=== PATIENT | male | born 1980 | race Caucasian/White ===

== ENCOUNTER 2023-07-21 15:54 | Emergency (ER) | payer BC, SELFPAY ==
--- NOTE | ~2023-07-21 | XR_ITS ---
EXAMINATION: [id number] INDICATION: Left rib pain TECHNIQUE: A frontal view of the chest and 3 views of the left ribs were obtained. COMPARISON: 09/17/2016 FINDINGS: The lungs are free of acute opacities. No pleural effusion or pneumothorax. Cardiomediastin al silhouette is normal. No displaced rib fracture is identified. IMPRESSION: 1. No acute cardiopulmonary abnormality or evidence of displaced rib fracture. Reviewed, dictated and finalized at location F. 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
--- NOTE | 2023-07-21 16:07 | ED.URI ---
HPI - URI/Sore Throat General Chief Complaint: Unspecified Stated Complaint: pain in left side Time Seen by Provider: 07/21/23 16:15 Source: patient Mode of arrival: ambulatory Limitations: no limitations History of Present Illness HPI Narrative: Beny is a 43-year-old male patient presenting to the clinic today with complaints pain in his left side. He is currently rating his pain a 10/10. He is having pain with movement. States that he was wrestling with his daughter 2 days ago and she had a min aside he fell off the bed. States that he did not have any pain after that. The next day he went bowling and did not have any pain with throwing the bowling ball however that night he went home and laid on the couch and started having pain in his left side. He reports that the pain is constant and takes his breath away with movement Related Data Home Medications Medication Instructions Recorded Confirmed buprenorphine 2 mg-naloxone 0.5 mg 1 film sublingual BID 07/21/23 07/21/23 sublingual film Allergies Allergy/AdvReac Type Severity Reaction Status Date / Time No Known Allergies Allergy Unknown Verified 07/21/23 16:22 Review of Systems Review of Systems: Pertinent positives per HPI. Patient denies any fever, chills, rash, headache, visual changes, dizziness, cough, chest pain, palpitations, nausea, vomiting, diarrhea, constipation, abdominal pain, or any urinary issues. PMFSH Comments At the time of my signature, I reviewed and agree with the nursing past medical, surgical, social, and family history. There is no relevant family history pertinent to the patient complaint. Exam Narrative: General: Well-developed, well nourished, in no apparent distress Head: Normocephalic, atraumatic Eyes: Pupils equally round and reactive to light bilaterally, EOM intact, sclera and conjunctive clear, no discharge, lids normal Ears: TMs intact and clear, ear canals clear, no drainage, grossly hearing normal. Nose: Nares patent, no discharge, no inflammation, no sinus tenderness. Mouth: Oral pharynx without lesions or masses, good dentition, MMM. Neck: Supple, trachea midline, no enlargement of anterior or posterior cervical nodes, no thyroid masses or goiter palpable. Chest wall: Even rise and fall of the chest wall with respirations, symmetric, bruising or swelling noted, tenderness to palpation over the posterior left ribs Cardio: Regular rate and rhythm, s1 and s2 normal, no murmur appreciated. Resp: Clear to auscultation bilaterally, no rhonchi, rales, wheezing or rubs Abdomen: Soft, pliable, bowel sounds present all 4 quadrants, mild tenderness to palpation over the left lateral side, no organomegaly, mild left CVA tenderness Course Course Emergency Course: Portions of this record may have been created with voice recognition software. Level of Care: Express Care Visit Vital Signs Vital signs: Vital Signs Temperature 36.6 C 07/21/23 16:08 Pulse Rate 81 07/21/23 16:08 Respiratory Rate 16 07/21/23 16:08 Blood Pressure 123/68 07/21/23 16:08 Pulse Oximetry 98 07/21/23 16:08 Oxygen Delivery Room Air 07/21/23 16:08 Temperature 36.6 C 07/21/23 16:08 Pulse Rate 81 07/21/23 16:08 Respiratory Rate 16 07/21/23 16:08 Blood Pressure 123/68 07/21/23 16:08 Pulse Oximetry 98 07/21/23 16:08 Oxygen Delivery Room Air 07/21/23 16:08 Vital signs reviewed MDM - URI/Sore Throat MDM Narrative Medical decision making narrative: At the time of visit patient is resting comfortably on the exam table. Patient appears to be nontoxic. UA is positive for trace of intact blood, left rib x-ray negative for any sign of fracture or malalignment, cannot exclude kidney stone however history sounds more muscle skeletal. Will place the patient on Flexeril and naproxen and discussed if he has worsening of symptoms to go to the emergency room for rule out of kidney stone. Supportive measures w
[2023-07-21 16:08] VITALS: BP 123/68; PULSE 81; RESP 16; TEMP 36.6; O2SAT 98
== END 2023-07-21 16:56 | disposition home or self-care (01) ==
PROVIDERS: Emergency Provider Nurse Practitioner Family; PCP Internal Medicine
DX: S29.8XXA Other specified injuries of thorax, initial encounter (principal); X58.XXXA Exposure to other specified factors, initial encounter; R31.29 Other microscopic hematuria
CPT/HCPCS: 71101; 81003; 99213; G0463

== ENCOUNTER 2023-12-10 18:15 | Emergency (ER) | payer SELFPAY ==
--- NOTE | ~2023-12-10 | XR_ITS ---
[[id number] ] INDICATION: Right rib pain after fall TECHNIQUE: Frontal projection of the upper right ribs, frontal projection of the lower right ribs, ob lique projection of all the right ribs, frontal inspiratory chest x-ray for interpretation. FINDINGS: There are no displaced rib fractures identified. There are no soft tissue abnormality see n. The lungs are clear. IMPRESSION: 1:No acute displaced rib fractures. Reviewed, dictated and finalized at location B.
--- NOTE | 2023-12-10 18:23 | ED.GENADULT ---
HPI - General Adult General Chief complaint: Fall Stated complaint: Fall Injury Time Seen by Provider: 12/10/23 18:23 Source: patient, RN notes reviewed and old records reviewed Mode of arrival: ambulatory Limitations: no limitations History of Present Illness HPI narrative: 43 year male presents to the [facility] with complaints of right rib pain post fall last Tuesday, 6 days ago. Patient states that he was cleaning out a wasp nest when he fell, landing on the spray can on his right ribs. Mild swelling noted. No ecchymosis. Patient is a smoker has taken Tylenol and Motrin Onset (ago): day(s) (6) Related Data Home Medications Medication Instructions Recorded Confirmed buprenorphine 2 mg-naloxone 0.5 mg 1 film sublingual BID 07/21/23 12/10/23 sublingual film Allergies Allergy/AdvReac Type Severity Reaction Status Date / Time No Known Allergies Allergy Unknown Verified 12/10/23 18:23 Review of Systems Review of Systems: All systems reviewed & are unremarkable except as noted in HPI and below Constitutional: Constitutional: Reports no additional constitutional complaints Eyes: Eyes: Reports no additional eye complaints ENT: Reports system reviewed and no additional complaints, except as documented Cardiovascular: Cardiovascular: Reports no additional cardiovascular complaints, Denies chest pain and Denies dyspnea Respiratory: Respiratory: Reports no additional respiratory complaints, Denies chest congestion, Denies cough and Denies dyspnea Gastrointestinal: Gastrointestinal: Reports no additional gastrointestinal complaints, Denies abdominal pain, Denies nausea and Denies vomiting Musculoskeletal: Musculoskeletal: Reports as per HPI Integumentary/Breasts: Skin/Breast: Reports system reviewed and no additional complaints, except as docu Neurologic: Reports system reviewed and no additional complaints, except as documented Psychiatric: Psychiatric: Reports no additional psychiatric complaints Allergic/Immunologic: Allergic/Immunologic: Reports no additional allergic/immunologic complaints PMFSH Social History Social History Smoking status: Current every day smoker Tobacco type: cigarettes Comments At the time of my signature, I reviewed and agree with the nursing past medical, surgical, social, and family history. There is no relevant family history pertinent to the patient complaint. Exam Const: General: cooperative, healthy appearing, comfortable, no acute distress, well developed, alert and well nourished Nutritional Appearance: well nourished and obese Orientation/consciousness: patient oriented x3 Limitations: no limitations HENMT: Head: normal to inspection Ears: hearing grossly normal bilaterally and external ears normal Face/Nose/Sinus: Normal external nose present, Normal nares present, Normal nasal mucous membranes and turbinates present, normal facial exam and face symmetric Face and sinus: normal facial exam and face symmetric Eyes: General: appearance normal, both eyes and all related structures Alignment and Position: alignment normal Periorbital: periorbital findings normal Pupils: Equal, round and reactive pupils present EOM: EOMs intact bilaterally Neck: Neck: normal visual inspection, full ROM, no lymphadenopathy and no meningeal signs Chest: Chest palpation & inspection: tenderness (Right lateral anterior ribs mid) rib; no clavicular xxx Chest/axillae images: 1. Tenderness palpation with mild swelling, no ecchymosis Resp: Effort & Inspection: normal respiratory effort and able to speak in complete sentences Auscultation: clear to auscultation bilaterally, no crackles, no rales, no rhonchi and no wheezes Cardio: Rate: regular rate Rhythm: regular rhythm Back/Spine/Pelvis: Cervical Spine: No cervical muscular tenderness and No Cervical spine tenderness Thoracic/Lumbar Spine: No thoracic spinal tenderness and
[2023-12-10 18:29] VITALS: BP 140/66; PULSE 60; RESP 16; TEMP 37; O2SAT 100
== END 2023-12-10 18:50 | disposition home or self-care (01) ==
PROVIDERS: Emergency Provider Nurse Practitioner; PCP Internal Medicine
DX: S20.211A Contusion of right front wall of thorax, initial encounter (principal); W19.XXXA Unspecified fall, initial encounter; F17.210 Nicotine dependence, cigarettes, uncomplicated
CPT/HCPCS: 71101; 99213; G0463